=== PATIENT | female | born 1990 | race Caucasian/White ===

== ENCOUNTER → 2018-12-08 18:02 | Outpatient (CLI) | payer OTHER, SELFPAY ==
[2018-12-08 18:39] LABS: Basophils % 0.5 % (0.1-2.0); Eosinophils # 0.2 K/mm3 (0.0-0.4); Eosinophils % 4.1 % (0.1-12.0); Hematocrit 37.4 % (37.0-47.0); Hemoglobin 13.2 g/dL (12.2-16.2); Lymphocytes # 1.9 K/mm3 (0.7-4.5); Mean Corpuscular HGB Conc 35.2 g/dL (31.8-35.4); Mean Corpuscular Hemoglobin 31.2 pg (27.0-31.2); Mean Corpuscular Volume 88.7 fl (81-99); Mean Platelet Volume 7.8 fl (7.4-10.4); Monocytes # 0.2 K/mm3 (0.1-1.0); Monocytes % 4.4 % (1.7-9.3); Platelet Count 179 K/mm3 (142-424); Red Blood Count 4.22 M/mm3 (4.20-5.40); White Blood Count 5.4 K/mm3 (4.8-10.8)
[2018-12-08 19:06] LABS: Alanine Aminotransferase 41 U/L (12-78); Albumin Level 4.2 gm/dL (3.4-5.0); Albumin/Globulin Ratio 1.3 (1.1-1.8); Alkaline Phosphatase 87 U/L (46-116); Anion Gap 14.1 mEq/L (5-15); Aspartate Amino Transferase 31 U/L (15-37); Bilirubin,Total 0.4 mg/dL (0.2-1.0); Blood Urea Nitrogen 14 mg/dL (7-18); Calcium 9.3 mg/dL (8.5-10.1); Carbon Dioxide 28 mmol/L (21.0-32.0); Chloride 104 mmol/L (98-107); Chol/HDL Ratio 2.3 (1-3.5); Cholesterol 140 mg/dL (140-200); Creatinine,Serum 0.75 mg/dL (0.55-1.02); Estimated Glomerular Filt Rate 93 ml/min (>60); Free T4 (Free Thyroxine) 0.79 ng/dl (0.76-1.46); GFR (African American) 112 ML/MIN (>60); Globulin 3.3 gm/dl (1.3-3.2); Glucose 98 mg/dL (74-106); HDL Cholesterol 61 mg/dL (29-89); LDL Cholesterol 71 mg/dL (0-130); Potassium 4.1 mmoL/L (3.5-5.1); Sodium 142 mmol/L (136-145); Thyroid Stimulating Hormone 2.67 uIU/ml (0.358-3.740); Total Protein,Serum 7.5 gm/dL (6.4-8.2); Triglycerides 41 mg/dL (30-200); VLDL Cholesterol 8 mg/dL (0-40)
[2018-12-08 19:46] LABS: C-Reactive Protein < 0.2 mg/L (0.0-0.9)
[2018-12-11 08:40] LABS: Vitamin D 25 Hydroxy 36.3 ng/mL (30.0-100.0)
[2018-12-12 04:10] LABS: Hepatitis B Core Antibody IgM Negative (Negative); Hepatitis B Surface Antigen Negative (Negative)
[2018-12-12 07:21] LABS: Hep A Ab, IgM Indeterminate (Negative); Hepatitis C Antibody <0.1 s/co ratio (0.0-0.9)
== END ==
PROVIDERS: Visit Provider Emergency Medicine
DX: R53.83 Other fatigue (principal); E16.2 Hypoglycemia, unspecified; R01.1 Cardiac murmur, unspecified
CPT/HCPCS: 80053; 80061; 80074; 82652; 84439; 84443; 85025; 86140

== ENCOUNTER → 2018-12-12 12:25 | Outpatient (CLI) | payer OTHER, SELFPAY ==
--- NOTE | 2018-12-12 12:41 | XR_ITS ---
EXAM: XR thoracic spine 2V HISTORY: ITS.REASON: back pain Comparison: None FINDINGS: Normal alignment. No fracture or dislocation. No lytic or blastic change. There is minimal degenerative disc disease in the mid thoracic spine with some decrease in the disc spaces and minimal osteophyte formation. IMPRESSION: Minimal thoracic spondylosis, no acute finding
--- NOTE | 2018-12-12 12:41 | XR_ITS ---
XR chest 2V HISTORY: Chest pain ITS.REASON: back pain ORDERING PHYSICIAN: Donavon Stoner MD PATIENT AGE: 28 years FINDINGS: The cardiomediastinal silhouette and pulmonary vascularity are within normal limits. No lobar consolidation or collapse is evident. There is a 12 mm nodular opacity overlying the right lung base. This is only well seen on the frontal view. The remaining lungs are clear. No acute bony anomalies. IMPRESSION: 12-mm nodular opacity overlies the right lung base. This is inferior to the breast shadow and is not felt to represent nipple shadow. This could represent a skin lesion or pulmonary nodule. If there are no skin lesions on the patient in this region then, CT may be of further value
--- NOTE | 2018-12-12 12:41 | XR_ITS ---
XR scoliosis survey CLINICAL INDICATION: ITS.REASON: back pain ORDERING PHYSICIAN: Donavon Stoner MD PATIENT AGE: 28 years Comparison: None FINDINGS: There is very minimal lower thoracic curvature convex left. This measures approximately 5 degrees. No congenital anomalies evident. IMPRESSION: Minimal thoracolumbar curvature convex left
[2018-12-12 13:40] LABS: Erythrocyte Sedimentation Rate 9 mm/hr (0-20)
== END ==
PROVIDERS: Visit Provider Emergency Medicine
DX: M54.6 Pain in thoracic spine (principal); M54.9 Dorsalgia, unspecified
CPT/HCPCS: 36415; 71046; 72070; 72081; 85651

== ENCOUNTER → 2018-12-19 10:38 | Outpatient (CLI) | payer OTHER, SELFPAY | PROVIDERS: PCP Emergency Medicine; Visit Provider Emergency Medicine | DX: R01.1 Cardiac murmur, unspecified (principal) | CPT/HCPCS: 93306 ==

== ENCOUNTER → 2018-12-28 12:31 | Outpatient (CLI) | payer OTHER, SELFPAY ==
--- NOTE | 2018-12-28 12:32 | CT_ITS ---
CT chest wo con HISTORY: Solitary pulmonary nodule, abnormal chest x-ray ITS.REASON: lung nodule seen on CXR ORDERING PHYSICIAN: Donavon Stoner MD PATIENT AGE: 28 years COMPARISON: 12/12/2018 Technique: Axial images obtained following the administration without contrast. Sagittal, and coronal reformatted images are also generated and reviewed. All CT scans at the facility use one or more dose reduction, viz: automated exposure control, ma/kV adjustment per patient size (including targeted exams where dose is matched to indication, i.e. head), or iterative reconstruction technique. FINDINGS: Numerous calcified nodes are present in the left aspect of the mediastinum superiorly and in the left hilum. There is some increased soft tissue density in the anterior mediastinum which may be related to residual fibrotic tissue. There is a normal heart size. There is an 11 mm well circumscribed nodule in the right lower lobe centrally near the hemidiaphragm accounting for the radiographic abnormality. There is some hyperdensity of the nodule centrally suggesting faint calcification. There is a calcified nodule in the left apex medially there are some mild fibrotic changes in the lung apices. There is some mild coarsening of the bronchovascular markings There are mild degenerative changes in the thoracic spine. IMPRESSION: 1. 11 mm right lower lobe nodule well circumscribed with some hyperdensity centrally consistent with a granuloma. 2. Multiple calcified lymph nodes of the left hilum and mediastinum along with a calcified nodule in the left upper lobe. 3. Mild coarsening of the bronchovascular markings which may be related to smoking-related lung disease.
== END ==
PROVIDERS: PCP Emergency Medicine; Visit Provider Emergency Medicine
DX: R91.1 Solitary pulmonary nodule (principal)
CPT/HCPCS: 71250

== ENCOUNTER → 2019-03-27 18:09 | Outpatient (CLI) | payer OTHER, SELFPAY | PROVIDERS: Visit Provider Emergency Medicine | DX: N39.0 Urinary tract infection, site not specified (principal) | CPT/HCPCS: 87086 ==

== ENCOUNTER 2019-04-18 23:46 | Emergency (ER) | payer OTHER, SELFPAY ==
[2019-04-18 23:50] VITALS: BP 120/64; PULSE 65; RESP 18; TEMP 36.9; O2SAT 99; BMI 17.9
--- NOTE | 2019-04-19 00:04 | CT_ITS ---
CT chest w con HISTORY: Chest pain 3 days ITS.REASON: Pain ORDERING PHYSICIAN: Donavon Stoner MD PATIENT AGE: 29 years COMPARISON: 12/28/2018 Technique: Contrast Used:75ml Optiray 350 Axial images were obtained. Sagittal, and coronal reformatted images are also generated and reviewed. All CT scans at the facility use one or more dose reduction, viz: automated exposure control, ma/kV adjustment per patient size (including targeted exams where dose is matched to indication, i.e. head), or iterative reconstruction technique. FINDINGS: No mediastinal or hilar mass. There are calcified mediastinal and hilar lymph nodes as before. Normal heart size. No evidence of aortic aneurysm or dissection or central pulmonary embolus. There is minimal biapical scarring. Left millimeter well-circumscribed nodule is once again noted in the right lung base with suggestion of some faint central calcification. There is a calcified granuloma in the left upper lobe medially. No lobar consolidation or collapse. There is mild coarsening of the bronchovascular markings as before. Upper abdominal images are unremarkable. IMPRESSION: 1. No change with no acute finding. 2. Calcified mediastinal and hilar lymph nodes with bilateral granulomas consistent with old granulomatous disease
[2019-04-19 00:47] VITALS: BP 103/61; PULSE 75; RESP 17; O2SAT 98
[2019-04-19 00:53] LABS: Basophils % 0.5 % (0.1-2.0); Eosinophils # 0.3 K/mm3 (0.0-0.4); Hematocrit 40.9 % (37.0-47.0); Hemoglobin 13.3 g/dL (12.2-16.2); Lymphocytes # 3.6 K/mm3 (0.7-4.5); Lymphocytes % 42.9 % (10-50); Mean Corpuscular HGB Conc 32.5 g/dL (31.8-35.4); Mean Corpuscular Hemoglobin 28.5 pg (27.0-31.2); Mean Corpuscular Volume 87.5 fl (81-99); Mean Platelet Volume 7.2 fl (7.4-10.4); Monocytes # 0.4 K/mm3 (0.1-1.0); Monocytes % 4.8 % (1.7-9.3); Neutrophils % 48.8 % (37.0-80.0); Platelet Count 202 K/mm3 (142-424); Red Blood Count 4.67 M/mm3 (4.20-5.40); Red Cell Distribution Width 12.9 % (11.5-17.5); White Blood Count 8.3 K/mm3 (4.8-10.8)
--- NOTE | 2019-04-19 01:03 | [facility].EDGENADL ---
ED Disposition Clinical Impression: Pleurisy Disposition: Home, Self-Care Condition on Discharge: Good Instructions: DI for Pleurisy Additional Instructions: use meds and see pcp for follow up Prescriptions: predniSONE [Prednisone 20mg Tab] 20 mg PO BID #10 tab Referrals: Donavon Stoner MD [Primary Care Provider] - - Critical Care Critical Care Time: No Attestation: On 04/18/19, the high probability of a clinically significant, sudden or life threatening deterioration of the following system(s) required my full and direct attention, intervention and personal management. The time I documented below is in addition to time spent performing reported procedures but includes the following listed in this critical care notation. Medical Decision Making - Medical Records Medical records reviewed: Yes: I reviewed the patient's medical records. - Rambo Inquiry Pt receiving controlled substance: No Vital Signs: 04/18/19 23:50 04/19/19 00:47 Temperature 98.5 F Temperature Source Oral Pulse Rate [Right Brachial] 65 75 Respiratory Rate 18 17 Blood Pressure [Right Arm] 120/64 103/61 L Blood Pressure Mean [Right Arm] 82 75 Blood Pressure Source [Right Arm] Automatic Cuff Automatic Cuff Blood Pressure Position [Right Arm] Sitting Supine 02 Sat by Pulse Oximetry 99 98 Oxygen Delivery Method Room Air Room Air - Lab Data Lab results reviewed: Yes: I reviewed the patient's lab results. Lab Results 04/18/19 00:06: WBC 8.3, RBC 4.67, Hgb 13.3, Hct 40.9, MCV 87.5, MCH 28.5, MCHC 32.5, RDW 12.9, Plt Count 202, MPV 7.2 L, Neut % (Auto) 48.8, Lymph % (Auto) 42.9, [place] % (Auto) 4.8, Eos % (Auto) 3.0, Baso % (Auto) 0.5, Neut # (Auto) 4.0, Lymph # (Auto) 3.6, [place] # (Auto) 0.4, Eos # (Auto) 0.3, Baso # (Auto) 0.0 04/18/19 00:06: Sodium 145, Potassium 3.6, Chloride 107, Carbon Dioxide 26, Anion Gap 15.6 H, BUN 11, Creatinine 0.86, Estimated Creat Clear 66, Estimated GFR 79, Est GFR ( Amer) 95, Glucose 84, Calcium 9.0, Total Bilirubin 0.2, AST 12 L, ALT 18, Alkaline Phosphatase 95, C-Reactive Protein < 0.2, Total Protein 7.5, Albumin 4.0, Globulin 3.5 H, Albumin/Globulin Ratio 1.1 04/19/19 00:06: ESR 8 Result diagrams: 04/18/19 00:06 04/18/19 00:06 Orders (Tests/Meds): ED MEDICATIONS Generic Name Dose Route Start Last Admin Trade Name Freq PRN Reason Stop Dose Admin Sodium Chloride 1,000 mls @ 999 mls/hr 04/18/19 23:45 04/19/19 00:02 Sod Chlor 0.9% 1000ml Bag IV 04/19/19 00:45 999 mls/hr .Q1H1M SHADI Administration Discontinued Medications Generic Name Dose Route Start Last Admin Trade Name Freq PRN Reason Stop Dose Admin Ioversol 75 ml 04/19/19 00:50 04/19/19 00:52 Rad-Optiray 350 100ml Vial IV 04/19/19 00:51 75 ml ONCE ONE Administration Protocol Ketorolac Tromethamine 30 mg 04/18/19 23:59 04/19/19 00:02 Toradol 30mg/Ml Vial IV 04/19/19 00:00 30 mg ONCE ONE Administration Methylprednisolone Sodium Succinate 125 mg 04/19/19 00:00 04/19/19 00:02 Solu-Medrol 125mg/2ml Vial IV 04/19/19 00:01 125 mg ONCE ONE Administration Sodium Chloride 10 ml 04/19/19 00:50 04/19/19 00:51 Rad-Saline Flush 10ml Syringe IV 04/19/19 00:51 10 ml ONCE ONE Administration ORDERS Category Date Time Status CT chest w con Stat Cat Scan 04/19/19 00:04 Taken - CT Data CT Scan: Chest Time Received: 01:[address] Reviewed: Yes: I have viewed the radiologist's interpretation Preliminary Findings: Normal/NAD General Adult HPI - General Chief complaint: PAIN Stated complaint: Pain in Right Lung Time Seen by Provider: 04/19/19 00:00 Mode of Arrival: Ambulatory Source of Information: Patient, Significant Other, Medical Record Limitations: No Limitations Description of Symptoms (Recalled from ER Triage Doc. by RN): Pt c/o right lung pain x 3days, with soa. States she has a mass on that lung and sees about it . NO other symptoms reported at thi
--- NOTE | 2019-04-19 01:07 | ED_ITS ---
ED Disposition Clinical Impression: Pleurisy Disposition: Home, Self-Care Condition on Discharge: Good Instructions: DI for Pleurisy Additional Instructions: use meds and see pcp for follow up Prescriptions: predniSONE [Prednisone 20mg Tab] 20 mg PO BID #10 tab Referrals: Donavon Stoner MD [Primary Care Provider] - - Critical Care Critical Care Time: No Attestation: On 04/18/19, the high probability of a clinically significant, sudden or life threatening deterioration of the following system(s) required my full and direct attention, intervention and personal management. The time I documented below is in addition to time spent performing reported procedures but includes the following listed in this critical care notation. Medical Decision Making - Medical Records Medical records reviewed: Yes: I reviewed the patient's medical records. - Rambo Inquiry Pt receiving controlled substance: No Vital Signs: 04/18/19 23:50 04/19/19 00:47 Temperature 98.5 F Temperature Source Oral Pulse Rate [Right Brachial] 65 75 Respiratory Rate 18 17 Blood Pressure [Right Arm] 120/64 103/61 L Blood Pressure Mean [Right Arm] 82 75 Blood Pressure Source [Right Arm] Automatic Cuff Automatic Cuff Blood Pressure Position [Right Arm] Sitting Supine 02 Sat by Pulse Oximetry 99 98 Oxygen Delivery Method Room Air Room Air - Lab Data Lab results reviewed: Yes: I reviewed the patient's lab results. Lab Results 04/18/19 00:06: WBC 8.3, RBC 4.67, Hgb 13.3, Hct 40.9, MCV 87.5, MCH 28.5, MCHC 32.5, RDW 12.9, Plt Count 202, MPV 7.2 L, Neut % (Auto) 48.8, Lymph % (Auto) 42 .9, [place] % (Auto) 4.8, Eos % (Auto) 3.0, Baso % (Auto) 0.5, Neut # (Auto) 4.0, Lymph # (Auto) 3.6, [place] # (Auto) 0.4, Eos # (Auto) 0.3, Baso # (Auto) 0.0 04/18/19 00:06: Sodium 145, Potassium 3.6, Chloride 107, Carbon Dioxide 26, Anion Gap 15.6 H, BUN 11, Creatinine 0.86, Estimated Creat Clear 66, Estimated GFR 79, Est GFR ( Amer) 95, Glucose 84, Calcium 9.0, Total Bilirubin 0.2, AST 12 L, ALT 18, Alkaline Phosphatase 95, C-Reactive Protein < 0.2, Total Protein 7.5, Albumin 4.0, Globulin 3.5 H, Albumin/Globulin Ratio 1.1 04/19/19 00:06: ESR 8 Result diagrams: 04/18/19 00:06 04/18/19 00:06 Orders (Tests/Meds): ED MEDICATIONS Generic Name Dose Route Start Last Admin Trade Name Freq PRN Reason Stop Dose Admin Sodium Chloride 1,000 mls @ 999 mls/hr 04/18/19 23:45 04/19/19 00:02 Sod Chlor 0.9% 1000ml Bag IV 04/19/19 00:45 999 mls/hr .Q1H1M SHADI Administration Discontinued Medications Generic Name Dose Route Start Last Admin Trade Name Freq PRN Reason Stop Dose Admin Ioversol 75 ml 04/19/19 00:50 04/19/19 00:52 Rad-Optiray 350 100ml Vial IV 04/19/19 00:51 75 ml ONCE ONE Administration Protocol Ketorolac Tromethamine 30 mg 04/18/19 23:59 04/19/19 00:02 Toradol 30mg/Ml Vial IV 04/19/19 00:00 30 mg ONCE ONE Administration Methylprednisolone Sodium Succinate 125 mg 04/19/19 00:00 04/19/19 00:02 Solu-Medrol 125mg/2ml Vial IV 04/19/19 00:01 125 mg ONCE ONE Administration Sodium Chloride 10 ml 04/19/19 00:50 04/19/19 00:51
[2019-04-19 01:11] LABS: Alanine Aminotransferase 18 U/L (12-78); Albumin/Globulin Ratio 1.1 (1.1-1.8); Alkaline Phosphatase 95 U/L (46-116); Anion Gap 15.6 mEq/L (5-15); Aspartate Amino Transferase 12 U/L (15-37); Bilirubin,Total 0.2 mg/dL (0.2-1.0); Blood Urea Nitrogen 11 mg/dL (7-18); Carbon Dioxide 26 mmol/L (21.0-32.0); Chloride 107 mmol/L (98-107); Creatinine Clearance Estimated 66 mL/min (50-200); Creatinine,Serum 0.86 mg/dL (0.55-1.02); Estimated Glomerular Filt Rate 79 ml/min (>60); GFR (African American) 95 ML/MIN (>60); Globulin 3.5 gm/dl (1.3-3.2); Glucose 84 mg/dL (74-106); Potassium 3.6 mmoL/L (3.5-5.1); Sodium 145 mmol/L (136-145); Total Protein,Serum 7.5 gm/dL (6.4-8.2)
[2019-04-19 01:12] LABS: C-Reactive Protein < 0.2 mg/L (0.0-0.9)
[2019-04-19 01:20] LABS: Erythrocyte Sedimentation Rate 8 mm/hr (0-20)
[2019-04-19 01:59] VITALS: BP 110/60; PULSE 71; RESP 17; TEMP 36.9; O2SAT 99
== END 2019-04-19 02:02 | disposition home or self-care (01) ==
PROVIDERS: Emergency Provider Emergency Medicine; PCP Emergency Medicine
DX: R09.1 Pleurisy (principal); F41.8 Other specified anxiety disorders; F17.210 Nicotine dependence, cigarettes, uncomplicated
CPT/HCPCS: 71260; 80053; 85025; 85651; 86140; 96365; 96374; 96375; 99283; Q9967

== ENCOUNTER 2023-12-12 09:58 | Outpatient (CLI) | payer OTHER, SELFPAY ==
[2023-12-12 10:21] VITALS: BMI 22.6
--- NOTE | 2023-12-12 11:11 | PC.NURSE ---
pt came in hostile with staff, very uncooperative. stating she did not want to do this test, and was not getting dressed for procedure and was not willing to stay the length it took to do the test. staff was able to talk patient down and pt stated to reschedule procedure for an earlier time and different day and she would be able to do it. relayed message to office who ordered test and radiology as well.
== END 2023-12-12 23:59 ==
LOC: RAD 10:00
PROVIDERS: PCP Emergency Medicine; Visit Provider Registered Nurse
DX: I20.89 Other forms of angina pectoris (principal)